=== PATIENT | male | born 1950 | race African-American/Black ===

== ENCOUNTER 2021-07-19 19:17 | Observation (INO) | payer OTHER ==
[2021-07-19] MEDS ORDERED: Sodium Chloride 0.9% 10 ML Syringe FLUSH PRN (20:03)
[2021-07-19] MEDS ORDERED: Sodium Chloride 0.9% 2.5 ML Syringe FLUSH PRN (20:03)
[2021-07-19] MEDS ORDERED: Sodium Chloride 0.9% 1,000 ML IV ONE ×3 (20:03→20:35)
[2021-07-19 20:24] LABS: BLOOD UREA NITROGEN,BUN 17 mg/dL (7.0-18.0); CARBON DIOXIDE,CO2 28.9 mmol/L (21.0-32.0); CHLORIDE,CL 93 mmol/L (98-107); POTASSIUM,K 4.8 mmol/L (3.5-5.1); SODIUM,NA 130 mmol/L (136-148)
[2021-07-19 20:28] LABS: GLUCOSE RANDOM 711 mg/dL (74-106)
[2021-07-19] MEDS ORDERED: Insulin Regular, Human 100 Units/ML 10 ML Vial IVPUSH ONE (20:34)
[2021-07-19 23:03] LABS: HEMOGLOBIN A1C 13.7 %
[2021-07-20] MEDS ORDERED: Glucagon,Human Recombinant 1 MG Vial IM PRN ×3 (00:32→09:16)
[2021-07-20] MEDS ORDERED: 50% Dextrose in Water 50 ML Syringe IVPUSH PRN ×3 (00:32→09:16)
[2021-07-20] MEDS ORDERED: Insulin Glargine,Human Rec. Analog 100 Units/ML 3 ML Pen SUBCUT SCH ×2 (00:33→09:30)
[2021-07-20] MEDS: Sodium Chloride 0.9% 1,000 ML IV SCH ×2 (00:40→08:36)
[2021-07-20 06:14] LABS: CARBON DIOXIDE,CO2 28.6 mmol/L (21.0-32.0); POTASSIUM,K 4.6 mmol/L (3.5-5.1)
[2021-07-20] MEDS: Insulin Aspart 100 Units/ML 3 ML Pen SUBCUT SCH ×3 (09:03→17:56)
[2021-07-20 15:48] VITALS: BP 170/99; PULSE 80
== END 2021-07-20 18:30 | disposition home or self-care (01) ==
LOC: MW.ED 19:17 → MW.MS 22:41
PROVIDERS: ADMIT Internal Medicine; ATTEND Internal Medicine
DX: R73.9 Hyperglycemia, unspecified (principal); N17.9 Acute kidney failure, unspecified; E86.0 Dehydration; Z88.0 Allergy status to penicillin; Z87.891 Personal history of nicotine dependence; Z20.822 Contact with and (suspected) exposure to COVID-19
CPT/HCPCS: 36415; 80048; 80053; 81003; 82009; 82803; 82947; 83036; 83735; 85025; 87086; 87635; 96360; 96361; 99285; G0378; J1815; J3490; J7030; U0002

== ENCOUNTER 2024-08-16 14:00 | Emergency (ER) | payer OTHER ==
[2024-08-16 14:25] VITALS: BP 162/93; PULSE 92
[2024-08-16 14:47] LABS: BASOPHILS ABSOLUTE AUTO 0.01 K/uL (0.00-0.20); BASOPHILS PERCENT AUTO 0.1 % (0.0-1.0); EOSINOPHILS ABSOLUTE AUTO 0.08 K/uL (0.00-0.45); EOSINOPHILS PERCENT AUTO 0.9 % (0.0-6.0); HEMATOCRIT 23.3 % (42.0-52.0); HEMOGLOBIN 7.6 g/dL (14.0-18.0); IMMATURE GRAN ABSOLUTE AUTO 0.03 K/uL (0.00-0.05); IMMATURE GRAN PERCENT AUTO 0.3 % (0.0-0.4); LYMPHOCYTES ABSOLUTE AUTO 1.52 K/uL (1.00-4.80); LYMPHOCYTES PERCENT AUTO 16.9 % (24.0-44.0); MEAN CORPUSCULAR HEMOGLOBIN 28.3 pg (28.0-32.0); MEAN CORPUSCULAR HGB CONC 32.6 g/dL (32.0-36.0); MEAN CORPUSCULAR VOLUME 86.6 fL (83.0-99.0); MEAN PLATELET VOLUME 11.9 fL (9.4-12.4); MONOCYTES ABSOLUTE AUTO 0.79 K/uL (0.00-0.80); MONOCYTES PERCENT AUTO 8.8 % (0.0-8.0); NEUTROPHILS ABSOLUTE AUTO 6.57 K/uL (1.80-7.70); PLATELET COUNT,PLT 138 K/uL (150-400); RED BLOOD CELL COUNT 2.69 M/uL (4.52-5.90)
[2024-08-16 15:03] LABS: BLOOD UREA NITROGEN,BUN 107 mg/dL (7.0-18.0); CALCIUM 8.5 mg/dL (8.5-10.1); CARBON DIOXIDE,CO2 21.1 mmol/L (21.0-32.0); CHLORIDE,CL 104 mmol/L (98-107); CREATININE 12.6 mg/dL (0.8-1.3); GLUCOSE RANDOM 97 mg/dL (74-106); POTASSIUM,K 5.5 mmol/L (3.5-5.1); SODIUM,NA 135 mmol/L (136-148)
[2024-08-16 15:08] LABS: ESTIMATED GFR 4 mL/min (>60)
[2024-08-16] MEDS: Albuterol/Ipratropium 3.0-0.5 MG/3 ML Neb Soln NEB ONE (16:00)
[2024-08-16] MEDS: Calcium Gluconate 10% 1 GM/10 ML SDV IVPUSH ONE (16:00)
[2024-08-16] MEDS: Sodium Polystyrene Sulfonate 15 GM/60 ML Susp 60 ML Bot PO ONE (16:00)
== END 2024-08-16 16:31 | disposition left against medical advice (07) ==
LOC: MW.ED 14:00
DX: E11.22 Type 2 diabetes mellitus with diabetic chronic kidney disease (principal); N18.9 Chronic kidney disease, unspecified; E87.5 Hyperkalemia; D64.9 Anemia, unspecified; Z88.0 Allergy status to penicillin
CPT/HCPCS: 36415; 80048; 85025; 96374; 99285; A9270; J0612; J7620; 99283